=== PATIENT | male | born 1980 | race Caucasian/White ===

== ENCOUNTER 2020-11-04 01:32 | Day surgery (SDC) | payer BC ==
[2020-11-04] MEDS ORDERED: Glucagon,Human Recombinant 1 MG Vial IVPUSH ONE (02:08)
--- NOTE | 2020-11-04 02:12 | EDM.PDOC ---
ED HPI GENERAL MEDICAL PROBLEM - General Chief Complaint: General Stated Complaint: FOOD STUCK IN THROAT Time Seen by Provider: 11/04/20 01:47 Source of Information: Reports: Patient History Limitations: Reports: No Limitations - History of Present Illness INITIAL COMMENTS - FREE TEXT/NARRATIVE: Mr. Gates is a very pleasant 40-year-old gentleman who states that he has suffered from an esophageal food impaction about every other month for the past 5 years, approximately. He underwent an outpatient EGD, when he was asymptomatic, in 2015, and states that they found nothing. The patient now presents to the ED stating that he ate some beef around 19:00 last night, then developed the sensation of esophageal food impaction behind his lower sternum. He is unable to swallow his own saliva. He has not taken any [id number] or home remedies since the onset of his symptoms. Here in the ED, Prior to last night, the patient denies having a recent fever, chills, sore thro at, ear pain, nasal or sinus congestion, cough, dyspnea, chest pain, palpitations, nausea, vomiting, constipation, diarrhea, abdominal pain, urinary symptoms, recent weight gain or weight loss, recent bloody bowel movements or black bowel movements, recent joint aches, headaches, or rashes. The patient does not have a PCP. He states that he received a single COVID vaccination in July. - Related Data Allergies Allergy/AdvReac Type Severity Reaction Status Date / Time No Known Allergies Allergy Verified 07/23/15 20:14 Home Meds: Home Meds . 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 ED EXAM, GI/ABD - Physical Exam Exam: See Below Exam Limited By: No Limitations General Appearance: Alert, WD/WN, Mild Distress (appears uncomfortable) Eyes: Bilateral: Normal Appearance, EOMI Ears: Normal External Exam, Hearing Grossly Normal Nose: Normal Inspection Throat/Mouth: Normal Inspection, Normal Lips, Normal Voice, No Airway Compromise Head: Atraumatic, Normocephalic Neck: Normal Inspection, Full Range of Motion Respiratory/Chest: No Respiratory Distress, Lungs Clear, Normal Breath Sounds, No Accessory Muscle Use Cardiovascular: Normal Peripheral Pulses, Regular Rate, Rhythm, No Edema, No Gallop, No JVD, No Murmur, No Rub GI/Abdominal Exam: Normal Bowel Sounds, Soft, Non-Tender (including the epigastrium), No Organomegaly, No Distention, No Abnormal Bruit, No Mass Back Exam: Normal Inspection, Full Range of Motion, NT Extremities: Normal Inspection, Normal Range of Motion, No Pedal Edema, Normal Capillary Refill Neurological: Alert, Oriented, Normal Cognition, No Motor/Sensory Deficits Psychiatric: Normal Affect Skin Exam: Warm, Dry, Intact, Normal Color, No Rash Course - Vital Signs Last Recorded V/S: Last Vital Signs Temp 36.8 C 11/04/20 01:42 Pulse 74 11/04/20 01:42 Resp 16 11/04/20 01:42 BP 145/91 H 11/04/20 01:42 Pulse Ox 97 11/04/20 01:42 - Orders/Labs/Meds Orders: Active Orders 24 hr Category Date Time Status Admission Status [Patient Status] [ADT] Routine ADT 11/04/20 02:51 Active Lactated Ringers [Ringers, Lactated] 1,000 ml Med 11/04/20 02:15 Active IV ASDIRECTED Schedule Procedure [COMM] Stat Oth 11/04/20 02:51 Ordered Medication Orders Lactated Ringer's (Ringers, Lactated) 1,000 mls @ 100 mls/hr IV ASDIRECTED [facility] Last Admin: 11/04/20 02:21 Dose: 100 mls/hr Documented by: ISA Labs: Laboratory Tests 11/04/20 Range/Units 02:49 SARS-CoV-2 RNA (ANETA) Negative (NEGATIVE) Meds: Medications Generic Name Dose Route Start Last Admin Trade Name Freq PRN Reason Stop Dose Admin Lactated Ringer's 1,000 mls @ 100 mls/hr 11/04/20 02:15 11/04/20 02:21 Ringers, Lactated IV 100 mls/hr ASDIRECTED [facility] Administration Discontinued Medications Generic Name Dose Route Start Last Admin Trade Name Angy PRN Reason Stop Dose Admin Fentanyl Confirm 11/04/20 03:19 Fentanyl 100 Mcg/2 Ml Sdv Administered 11/04/20 03:20 Dose 100 mcg .ROUTE .STK-MED ONE Glucagon 1 mg 11/04/20 02:08 11/04/20 02:21 Glucagon,Human Recombinant 1 Mg Vial IVPUSH 11/04/20 02:09 1 mg ONETIME ONE Administration Midazolam HCl Confirm 11/04/20 03:19 Midazolam 1 Mg/Ml 2 Ml Sdv Administered 11/04/20 03:20 Dose 2 mg .ROUTE .STK-MED ONE Propofol Confirm 11/04/20 03:19 Propofol 200 Mg/20 Ml Sdv Administered 11/04/20 03:20 Dose 200 mg .ROUTE .STK-MED ONE - Re-Assessments/Exams Free Text/Narrative Re-Assessment/Exam: 11/04/20 02:09 I gave the patient some water to drink, but he was unable to keep it down. He appears to have an esophageal food impaction. I have ordered glucagon 1 mg IVP and some IV fluid. 11/04/20 02:36 It has been about 10 minutes since the patient was given IV glucagon. He states that he still feels like there is something stuck in his esophagus. I had him take a sip of water, but it came back up. 11/04/20 02:[address] Barnes at 02:38. He will come to the ED with the expectation of taking the patient to the OR for an EGD. 11/04/20 03:48 The patient's swab for the SARS-CoV-2 virus is negative. Departure - Departure Time of Disposition: 03:50 Disposition: DC/Tfer to [facility] Access [facility] Condition: Good Clinical Impression: Esophageal obstruction due to food impaction - Discharge Information *PRESCRIPTION DRUG MONITORING PROGRAM REVIEWED*: Not Applicable *COPY OF PRESCRIPTION DRUG MONITORING REPORT IN PATIENT DIEUDONNE: Not Applicable Sepsis Event Note (ED) - Focused Exam Vital Signs: Vital Signs Temp Pulse Resp BP Pulse Ox 11/04/20 01:42 36.8 C 74 16 145/91 H 97 - My Orders Last 24 Hours: My Active Orders 11/04/20 02:15 Lactated Ringers [Ringers, Lactated] 1,000 ml IV ASDIRECTED - Assessment/Plan Last 24 Hours: My Active Orders 11/04/20 02:15 Lactated Ringers [Ringers, Lactated] 1,000 ml IV ASDIRECTED
[2020-11-04] MEDS ORDERED: Lactated Ringers 1,000 ML IV SCH (02:15)
[2020-11-04] MEDS ORDERED: Propofol 200 MG/20 ML SDV ONE (03:19)
[2020-11-04] MEDS ORDERED: fentaNYL 100 MCG/2 ML SDV ONE (03:19)
[2020-11-04] MEDS ORDERED: Midazolam 1 MG/ML 2 ML SDV ONE (03:19)
--- NOTE | 2020-11-04 03:37 | PCM.PREANE ---
Preanesthetic Assessment - Procedure Proposed Procedure: EGD - Anesthesia/Transfusion/Family Hx Anesthesia History: Prior Anesthesia Without Reaction Family History of Anesthesia Reaction: No Transfusion History: No Prior Transfusion(s) - Review of Systems General: Fatigue Pulmonary: No Symptoms Cardiovascular: No Symptoms Gastrointestinal: Abdominal Pain Neurological: No Symptoms Other: Reports: None - Physical Assessment NPO Status Date: 11/03/20 NPO Status Time: 19:00 Vital Signs: Last Vital Signs Temp 36.8 C 11/04/20 01:42 Pulse 74 11/04/20 01:42 Resp 16 11/04/20 01:42 BP 145/91 H 11/04/20 01:42 Pulse Ox 97 11/04/20 01:42 Height: 1.85 m Weight: 99.79 kg ASA Class: 2 Mental Status: Alert & Oriented x3 Airway Class: Mallampati = 2 Dentition: Reports: Normal Dentition, [place](s) Thyro-Mental Finger Breadths: 2 Mouth Opening Finger Breadths: 2 ROM/Head Extension: Full Lungs: Clear to Auscultation, Normal Respiratory Effort Cardiovascular: Regular Rate, Regular Rhythm - Allergies Allergies/Adverse Reactions: Allergies Allergy/AdvReac Type Severity Reaction Status Date / Time No Known Allergies Allergy Verified 07/23/15 20:14 - Blood Blood Available: No Product(s) Available: None - Anesthesia Plan Pre-Op Medication Ordered: None - Acknowledgements Anesthesia Type Planned: General Anesthesia Pt an Appropriate Candidate for the Planned Anesthesia: Yes Alternatives and Risks of Anesthesia Discussed w Pt/Guardian: Yes Pt/Guardian Understands and Agrees with Anesthesia Plan: Yes PreAnesthesia Questionnaire Gastrointestinal History: Reports: GERD (untreated) Musculoskeletal History: Reports: Other (See Below) Other Musculoskeletal History: left knee surgery - Past Surgical History Musculoskeletal Surgical History: Reports: Arthroscopic Procedure (left knee) - SUBSTANCE USE Tobacco Use Status *Q: Never Tobacco User Tobacco Use Within Last Twelve Months: No Second Hand Smoke Exposure: No Days Per Week of Alcohol Use: 0 Number of Drinks Per Day: 0 Total Drinks Per Week: 0 Recreational Drug Use History: No - HOME MEDS Home Medications: Home Meds . [No Known Home Meds] 11/04/20 [History] - CURRENT (IN HOUSE) MEDS Current Meds: Current Medications Lactated Ringer's (Ringers, Lactated) 1,000 mls @ 100 mls/hr IV ASDIRECTED [facility] Last Admin: 11/04/20 02:21 Dose: 100 mls/hr Documented by: Discontinued Medications Fentanyl (Fentanyl 100 Mcg/2 Ml Sdv) Confirm Administered Dose 100 mcg .ROUTE .STK-MED ONE Stop: 11/04/20 03:20 Glucagon (Glucagon,Human Recombinant 1 Mg Vial) 1 mg IVPUSH ONETIME ONE Stop: 11/04/20 02:09 Last Admin: 11/04/20 02:21 Dose: 1 mg Documented by: Midazolam HCl (Midazolam 1 Mg/Ml 2 Ml Sdv) Confirm Administered Dose 2 mg .ROUTE .STK-MED ONE Stop: 11/04/20 03:20 Propofol (Propofol 200 Mg/20 Ml Sdv) Confirm Administered Dose 200 mg .ROUTE .STK-MED ONE Stop: 11/04/20 03:20
[2020-11-04] MEDS ORDERED: Succinylcholine/Sod PF 100 MG/5 ML SYRINGE IV ONE (04:03)
--- NOTE | 2020-11-04 04:27 | PCM.HP.2 ---
H&P History of Present Illness - General Date of Service: 11/04/20 Admit Problem/Dx: Admission Diagnosis/Problem Admission Diagnosis/Problem Food impaction of esophagus Source of Information: Patient History Limitations: Reports: No Limitations - History of Present Illness Initial Comments - Free Text/Narative: Mr. Gates is a 40 yo man who presents a few hours after he swallowed some steak at dinner and felt the bolus get stuck. He has been unable to drink water or manage his secretions. This happens to him every 1-2 months. He had one prior diagnostic EGD after a food impaction spontaneously cleared but he does not think any biopsies were done. - Related Data Allergies/Adverse Reactions: Allergies Allergy/AdvReac Type Severity Reaction Status Date / Time No Known Allergies Allergy Verified 07/23/15 20:14 Home Medications: Home Meds . [No Known Home Meds] 11/04/20 [History] Past Medical History Gastrointestinal History: Reports: GERD (untreated) Musculoskeletal History: Reports: Other (See Below) Other Musculoskeletal History: left knee surgery - Past Surgical History Musculoskeletal Surgical History: Reports: Arthroscopic Procedure (left knee) Social & Family History - Tobacco Use Tobacco Use Status *Q: Never Tobacco User Second Hand Smoke Exposure: No - Caffeine Use Caffeine Use: Reports: Soda - Alcohol Use Days Per Week of Alcohol Use: 0 Number of Drinks Per Day: 0 Total Drinks Per Week: 0 - Recreational Drug Use Recreational Drug Use: No - Living Situation & Occupation Living situation: Reports: , with Spouse, with Family (3 kids) 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[employer]) H&P Review of Systems - Review of Systems: Review Of Systems: See Below General: Reports: No Symptoms HEENT: Reports: No Symptoms Pulmonary: Reports: No Symptoms Cardiovascular: Reports: Chest Pain Gastrointestinal: Reports: Difficulty Swallowing Genitourinary: Reports: No Symptoms Musculoskeletal: Reports: No Symptoms Skin: Reports: No Symptoms Psychiatric: Reports: No Symptoms Neurological: Reports: No Symptoms Hematologic/Lymphatic: Reports: No Symptoms Immunologic: Reports: No Symptoms Exam - Exam Exam: See Below - Vital Signs Vital Signs: Last Vital Signs Temp 36.8 C 11/04/20 01:42 Pulse 74 11/04/20 01:42 Resp 16 11/04/20 01:42 BP 145/91 H 11/04/20 01:42 Pulse Ox 97 11/04/20 01:42 Weight: 99.79 kg - Exam General: Alert, Oriented, Cooperative HEENT: Conjunctiva Clear Neck: Supple, Trachea Midline Lungs: Normal Respiratory Effort Cardiovascular: Regular Rate, Regular Rhythm GI/Abdominal Exam: Soft Extremities: Normal Inspection Skin: Warm, Dry Neuro Extensive - Mental Status: Alert, Oriented x3 - Patient Data Lab Results Last 24 hrs: Laboratory Results - last 24 hr 11/04/20 Range/Units 02:49 SARS-CoV-2 RNA (ANETA) Negative (NEGATIVE) Sepsis Event Note - Evaluation Sepsis Screening Result: No Definite Risk - Focused Exam Vital Signs: Vital Signs Temp Pulse Resp BP Pulse Ox 11/04/20 01:42 36.8 C 74 16 145/91 H 97 Problem List Initiated/Reviewed/Updated: Yes Orders Last 24hrs: Active Orders 24 hr Category Date Time Status Admission Status [Patient Status] [ADT] Routine ADT 11/04/20 02:51 Active Ready for Discharge [RC] PER UNIT ROUTINE Care 11/04/20 04:21 Ordered Lactated Ringers [Ringers, Lactated] 1,000 ml Med 11/04/20 02:15 Active IV ASDIRECTED Schedule Procedure [COMM] Stat Oth 11/04/20 02:51 Ordered Medication Orders Lactated Ringer's (Ringers, Lactated) 1,000 mls @ 100 mls/hr IV ASDIRECTED [facility] Last Admin: 11/04/20 02:21 Dose: 100 mls/hr Documented by: ISA Assessment/Plan Comment:: Recurrent esophageal food impaction. Plan for therapeutic EGD with esophageal clearance and biopsies; history suggestive of eosinophilic esophagitis vs GERD. Anticipate discharge to home on restricted diet following procedure. - Mortality Measure Prognosis:: Good
--- NOTE | 2020-11-04 04:33 | PCM.PRNOTE ---
- Free Text/Narrative Note: Date: 11/04/2020 Procedure: flexible esophagoscopy with clearance of food impaction and esophageal biopsy Indication: recurrent esophageal food impaction Endoscopist: Micah Barnes MD Findings: food (steak) impaction at distal esophagus, with associated esophageal inflammation. Detailed Report: The patient was taken to the endoscopy suite and positioned supine. Timeout was performed and general endotracheal anesthesia was initiated. The endoscope was inserted into the mouth and advanced to the distal esophagus. There was food impaction with a piece of steak. The endoscope was able to be passed beyond the bolus into the stomach, but the bolus did not readily pass antegrade. The scope was removed, and an overtube was placed using the scope. Via the overtube, the food bolus was removed piecemeal using jumbo forceps. Once enough of the food had been extracted, the remainder of the bolus was able to be advanced into the stomach with gentle pressure with the scope. The esophagus was irrigated with water. The stomach was suctioned of fluid. There appeared to be significant inflammation of the distal esophagus at the site of food impaction. 2 biopsies of esophageal mucosa were obtained at this site, and mucosa was noted to be edematous and slightly indurated. With the esophagus cleared, air was suctioned from the stomach and the endoscope and overtube were removed. The patient tolerated the procedure well.
--- NOTE | 2020-11-04 04:41 | PCM.POSTAN ---
POST ANESTHESIA ASSESSMENT - MENTAL STATUS Mental Status: Alert, Oriented - VITAL SIGNS Vital Signs: Last Vital Signs Temp 36.8 C 11/04/20 01:42 Pulse 74 11/04/20 01:42 Resp 16 11/04/20 01:42 BP 145/91 H 11/04/20 01:42 Pulse Ox 97 11/04/20 01:42 - RESPIRATORY Respiratory Status: Respiratory Rate WNL, Airway Patent, O2 Saturation Stable, Supplemental Oxygen - CARDIOVASCULAR CV Status: Pulse Rate WNL, Blood Pressure Stable - GASTROINTESTINAL GI Status: No Symptoms - PAIN Pain Score: 0 - POST OP HYDRATION Hydration Status: Adequate & Stable - OBSERVATIONS Free Text/Narrative:: no anesthesia complications noted
[2020-11-04 05:26] VITALS: BP 109/91; PULSE 74
== END 2020-11-04 05:43 | disposition home or self-care (01) ==
LOC: JD.ED 01:32 → JD.SDS 02:51
PROVIDERS: ATTEND Surgery
DX: T18.128A Food in esophagus causing other injury, initial encounter (principal); Z98.890 Other specified postprocedural states; Z01.812 Encounter for preprocedural laboratory examination; Z20.822 Contact with and (suspected) exposure to COVID-19
CPT/HCPCS: 00731; 96374; 99284; 99284-25; J0330; J1610; J2250; J2704; J3010; J7120; U0002